=== PATIENT | female | born 1970 | race Caucasian/White ===

== ENCOUNTER 2016-12-31 08:03 | Emergency (ER) | payer BC ==
--- NOTE | ~2016-12-31 | CR63 ---
[facility] A Service of [facility] RADIOLOGY TEXT RESULTS PATIENT: YAKELIN QUARLES LOCATION: SED : 70 UNIT #: [id number] AGE: [address]: Miki Culp MD SEX: F ORDER DR: [id number] [address] [address] [id number] E MR#: [id number] Acc #: [id number] NAME: YAKELIN QUARLES : 1970 SEX: F STUDY DATE/TIME: 12/31/2016 8:34 UNIT: SED ROOM: STUDY DESCRIPTION: CR Chest 2 View Attending Physician: Miki Culp M.D. Ordering Physician: Miki Culp M.D. Primary Care Physician: Primary Care Physician No MEDICAL IMAGING REPORT This report is preliminary unless electronic signature is present. EXAM 2 views chest, 12/31/2016 HISTORY Cough, sinus drain, vomiting. FINDINGS PA and lateral radiographs of the chest are presented. Comparison 11/14/2015. Heart normal to upper limits of normal in size given low lung volumes. Lung volumes are low with some bronchovascular crowding at the lung bases. There is no compelling indication of acute infectious or inflammatory disease, pleural effusion or pneumothorax. No suspicious nodule. Surgical clips in upper abdomen likely from prior cholecystectomy. Visualized bowel gas pattern normal. The patient has a Lap-Band device in place. Visualized components appear normally positioned. Dictated by... Krunal Peck M.D. THIS IS AN ELECTRONICALLY VERIFIED REPORT Krunal Peck M.D. at 01/03/2017 8:13 AM Karlie TD: 12/31/2016 09:56 JOB #: [id number] MEDICAL IMAGING REPORT Page 1 of 1
[~2016-12-31 08:03] MED LIST: BYSTOLIC10 MG PO; SERTRALINE HCL50 MG PO
[2016-12-31] MEDS ORDERED: EFFEXOR75 MG (08:10)
== END 2016-12-31 09:12 | disposition home or self-care (01) ==
LOC: SED 08:03
DX: J06.9 Acute upper respiratory infection, unspecified (principal); J30.9 Allergic rhinitis, unspecified; Z91.040 Latex allergy status
CPT/HCPCS: 71020; 99283